=== PATIENT | male | born 1970 | race Caucasian/White ===

== ENCOUNTER → 2021-12-20 11:26 | Outpatient (CLI) | payer OTHER, SELFPAY | PROVIDERS: Visit Provider Family Medicine | DX: H91.22 Sudden idiopathic hearing loss, left ear (principal); H93.12 Tinnitus, left ear | CPT/HCPCS: 99204; 99212 ==

== ENCOUNTER → 2021-12-25 14:21 | Outpatient (CLI) | payer OTHER, SELFPAY | PROVIDERS: Visit Provider Family Medicine | DX: H91.22 Sudden idiopathic hearing loss, left ear (principal) | CPT/HCPCS: 99183; G0277 ==

== ENCOUNTER 2022-01-21 03:53 | Emergency (ER) | payer OTHER, SELFPAY ==
[2022-01-21] VITALS (15 sets, daily range): BP systolic 115–164; BP diastolic 58–86; PULSE 58–89; RESP 10–20; TEMP 36.3; O2SAT 94–98; BMI 32.5
--- NOTE | 2022-01-21 04:10 | DI.CT.S_ITS ---
PROCEDURE: CT HEAD/BRAIN WO CON INDICATIONS: severe headache, recent surgery for acoustic schwannoma TECHNIQUE: Noncontrast 4.5 mm thick angled axial sections acquired from the foramen magnum to the vertex, with coronal and sagittal reformats. For radiation dose reduction, the following was used: automated exposure control, adjustment of mA and/or kV according to patient size. COMPARISON: None. FINDINGS: Image quality: Excellent. CSF spaces: Basal cisterns are patent. No extra-axial fluid collections. Ventricles are normal in size and shape. Brain: No midline shift. No intracranial masses or hemorrhage. Ferro-white matter interface is normal. Skull and face: Calvarium and visualized facial bones are intact, without suspicious lesions. Sinuses: Visualized sinuses are clear. 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 IMPRESSION: No acute intracranial disease process. Dictated by: Eva Rowe MD, PhD on 01/21/2022 at 7:32 Approved by: Eva Rowe MD, PhD on 01/21/2022 at 7:34
--- NOTE | 2022-01-21 04:12 | ED_ITS ---
HPI - Headache <Jameson Moura DO - Last Filed: 01/21/22 17:57> General Chief Complaint: Headache Stated Complaint: headache after brain surgery Time Seen by Provider: 01/21/22 04:09 History of Present Illness HPI Narrative: 51-year-old male nonsmoker with history of acoustic schwannoma and recent surgical intervention at [facility], currently postop day 5 presents with his in the chief complaint of a rather sudden onset severe and worsening headache over the course of the day. He states that he sneezed this evening and felt a sudden and severe left-sided headache that initially was in his left frontal region but rather quickly radiated to the left occipital region. He states he has taken all of his routine medications including antiemetics, Tylenol, meloxicam and even oxycodone and morphine with little to no relief. He denies any trauma or injury. He has had no fever or chills. He denies blurred vision, trouble speech or extremity numbness, tingling or weakness. He states he has had complete left-sided hearing loss since prior to the surgery and there is no change there and he has been slightly dizzy for some time as well, no change the re. He is nauseated but denies any vomiting. He has no chest pain or shortness of breath. He denies any obvious provocation or palliation of his symptoms. Related Data Allergies Allergy/AdvReac Type Severity Reaction Status Date / Time Benzodiazepines AdvReac Verified 01/21/22 04:17 Nbnxfco-DIK-PlW Reductase AdvReac Verified 01/21/22 04:17 Inhibitor Review of Systems <Jameson Moura DO - Last Filed: 01/21/22 17:57> Review of Systems Narrative: GENERAL: Denies chills, fatigue, malaise, fever, sweats. HEENT: Denies sinus pain, ear pain, sore throat, difficulty swallowing, dizziness. RESPIRATORY: Denies dyspnea, cough, wheezing, hemoptysis, sputum. CARDIOVASCULAR: Denies chest pain, palpitations, orthopnea, edema, GASTROINTESTINAL: Denies nausea, vomiting, abdominal pain, diarrhea, constipat ion, melena. : Denies dysuria, frequency, incontinence, hematuria, urinary retention. MUSCULOSKELETAL: denies weakness, joint pain, or bony pain SKIN: Denies rash, skin lesions, or other NEUROLOGIC: See HPI PSYCHIATRIC: No concerning psychosocial issues. 12 point review of systems is negative except for those stated above Patient History <Jameson Moura DO - Last Filed: 01/21/22 17:57> Social History Smoking Status: Never smoker Exam <Jameson Moura DO - Last Filed: 01/21/22 17:57> Narrative Exam Narrative: GENERAL: [51] year old patient appears stated age. Well-developed patient, in mild distress. GCS 15, ambulating with steady gait HEAD: Atraumatic. Normocephalic. Left posterior auricular incision is clean, dry and intact without any dehiscence, drainage, erythema EYES: Pupils equal round and reactive. Extraocular motions intact. No scleral icterus. No injection or drainage. ENT: Nose without bleeding, purulent drainage. Throat without erythema, tonsillar hypertrophy or exudate. Airway patent. NECK: Trachea midline. Non tender CARDIOVASCULAR: Regular rate and rhythm without murmurs, gallops, or rubs. RESPIRATORY: Clear to auscultation. Breath sounds equal bilaterally. No wheezes, rales, or rhonchi. GASTROINTESTINAL: Abdomen soft, non-tender, nondistended. EXTREMITIES: No edema or joint tenderness. BACK: Nontender without deformity or crepitance. No flank tenderness. NEURO: AOx3. Cranial nerves 2-12 grossly intact SKIN: No rash or erythema of visible areas Initial Vital Signs Initial Vital Signs: Vital Signs Temperature 97.3 F L 01/21/22 03:56 Pulse Rate 69 01/21/22 03:56 Respiratory Rate 13 01/21/22 03:56 Blood Pressure 164/86 H 01/21/22 03:56 Pulse Oximetry 98 01/21/22 03:56 <Leah Mckeon DO - Last Filed: 01/21/22 18:31> Initial Vital Signs Initial Vital Signs: Vital Signs Temperature 97.3 F L 01/21/22 03:56 Pulse Rate 69 01/21/22 03:56 Respiratory Rate 13 01/21/22 03:56 Blood Pressure 164/86 H 01/21/22 03:56 Pulse Oximetry 98 01/21/22 03:56 Course <DO Ananya Chopra Last Filed: 01/21/22 17:57> Orders Ordered: ED Orders 01/21/22 10:30 CT head/brain wo con Stat Discontinued Medications Dexamethasone (Dexamethasone 4 Mg/Ml Vial) 2 mg IV NOW ONE Stop: 01/21/22 10:56 Last Admin: 01/21/22 11:12 Dose: 2 mg Documented by: LUIS M Sodium Chloride (Normal Saline 0.9%) 1,000 mls @ 125 mls/hr IV CONT TRAE Last Infusion: 01/21/22 10:16 Dose: 0 mls/hr Documented by: Infusion: 01/21/22 10:13 Dose: 0 mls/hr Documented by: Admin: 01/21/22 04:53 Dose: 125 mls/hr Documented by: MIRANDA Sodium Chloride (Normal Saline 0.9%) 1,000 mls @ 1,000 mls/hr IV BOLUS ONE Stop: 01/21/22 12:09 Last Infusion: 01/21/22 12:15 Dose: 0 mls/hr Documented by: LUIS M Admin: 01/21/22 11:12 Dose: 1,000 mls/hr Documented by: LUIS M Consultations Consultation #1: [id number] - discussed with electroneurodiagnostic technologist ENT at [facility] ([facility]) who was involved with patient's surgery and we have discussed elements of history and physical as well as labs and imaging. We sure the opinion that meningitis is unlikely, and are reassured by initial head CT. We discussed the possibility of other imaging modalities and in the and he recommends repeating the head CT at the 6 hour gayle. In the interim he will discuss with his partner and notify us if there is any alternative plan recommended. Vital Signs Vital signs: Vital Signs - 8 hr 01/21/22 10:46 01/21/22 11:00 01/21/22 11:30 Pulse Rate 63 64 74 Blood Pressure 115/58 L Pulse Oximetry 96 95 95 01/21/22 12:00 01/21/22 12:11 Pulse Rate 77 66 Blood Pressure 130/64 Pulse Oximetry 96 97 <Leah Mckeon DO - Last Filed: 01/21/22 18:31> Orders Ordered: ED Orders 01/21/22 10:30 CT head/brain wo con Stat Discontinued Medications Dexamethasone (Dexamethasone 4 Mg/Ml Vial) 2 mg IV NOW ONE Stop: 01/21/22 10:56 Last Admin: 01/21/22 11:12 Dose: 2 mg Documented by: LUIS M Sodium Chloride (Normal Saline 0.9%) 1,000 mls @ 125 mls/hr IV CONT TRAE Last Infusion: 01/21/22 10:16 Dose: 0 mls/hr Documented by: Infusion: 01/21/22 10:13 Dose: 0 mls/hr Documented by: Admin: 01/21/22 04:53 Dose: 125 mls/hr Documented by: MIRANDA Sodium Chloride (Normal Saline 0.9%) 1,000 mls @ 1,000 mls/hr IV BOLUS ONE Stop: 01/21/22 12:09 Last Infusion: 01/21/22 12:15 Dose: 0 mls/hr Documented by: LUIS M Admin: 01/21/22 11:12 Dose: 1,000 mls/hr Documented by: LUIS M Reevaluation(s) Reevaluation #1: Patient was sleeping. Head CT is negative. Current plan is for repeat head CT at 10:30 a.m. and with results follow-up with neuro surgery for additional plan. Time: 09:09 Consultations Consultation #2: Spoke with Dr. Kehinde Cotto. Time: 11:55 Vital Signs Vital signs: Vital Signs - 8 hr 01/21/22 10:46 01/21/22 11:00 01/21/22 11:30 Pulse Rate 63 64 74 Blood Pressure 115/58 L Pulse Oximetry 96 95 95 01/21/22 12:00 01/21/22 12:11 Pulse Rate 77 66 Blood Pressure 130/64 Pulse Oximetry 96 97 MDM - Headache <Jameson Moura DO - Last Filed: 01/21/22 17:57> Lab Data Result diagrams: 01/21/22 04:30 01/21/22 04:30 Labs: Lab Results 01/21/22 01/21/22 01/21/22 Range/Units 04:30 04:30 04:30 WBC 6.7 (4.5-11.0) X10^3/uL RBC 4.88 (4.5-5.9) X10^6/uL Hgb 15.7 (13.5-17.5) g/dL Hct 43.9 (41-53) % MCV 89.9 (80-100) fL MCH 32.1 (26-34) PG MCHC 35.7 (30-36) % RDW 13.1 (11.6-14.8) % Plt Count 198 (150-400) X10^3/uL Neut % (Auto) 65.4 (50-75) % Lymph % (Auto) 24.4 L (25-40) % [place] % (Auto) 8.8 (3-14) % Eos % (Auto) 0.9 L (2-4) % Baso % (Auto) 0.5 (0-2) % Neut # (Auto) 4400 (5282-7528) /uL Lymph # (Auto) 1600 (5033-4957) /uL [place] # (Auto) 600 (0-900) /uL Eos # (Auto) 100 (0-450) /uL Baso # (Auto) 0 (0-100) /uL Sodium 135 L (137-145) mmol/L Potassium 4.1 (3.4-5.1) mmol/L Chloride 99 (98-107) mmol/L Carbon Dioxide 29 (22-32) mmol/L BUN 23 H (9-20) mg/dL Creatinine 1.10 (0.66-1.25) mg/dL Estimated GFR > 60 (>60) mL/min BUN/Creatinine Ratio 20.9 (6-22) Glucose 99 (70-100) mg/dL Calcium 8.7 (8.4-10.2) mg/dL Magnesium 2.0 (1.6-2.3) mg/dL Total Bilirubin 0.4 (0.2-1.3) mg/dL AST 19 (17-59) IU/L ALT 16 (<50) IU/L Alkaline Phosphatase 46 (38-126) U/L Total Protein 6.6 (6.3-8.2) g/dL Albumin 4.1 (3.5-5.0) g/dL Globulin 2.5 (1.7-4.1) g/dL Albumin/Globulin Ratio 1.6 (1.0-2.8) SARS-CoV-2 (PCR) (Negative) 01/21/22 Range/Units 04:55 WBC (4.5-11.0) X10^3/uL RBC (4.5-5.9) X10^6/uL Hgb (13.5-17.5) g/dL Hct (41-53) % MCV (80-100) fL MCH (26-34) PG MCHC (30-36) % RDW (11.6-14.8) % Plt Count (150-400) X10^3/uL Neut % (Auto) (50-75) % Lymph % (Auto) (25-40) % [place] % (Auto) (3-14) % Eos % (Auto) (2-4) % Baso % (Auto) (0-2) % Neut # (Auto) (8971-7538) /uL Lymph # (Auto) (5276-0824) /uL [place] # (Auto) (0-900) /uL Eos # (Auto) (0-450) /uL Baso # (Auto) (0-100) /uL Sodium (137-145) mmol/L Potassium (3.4-5.1) mmol/L Chloride (98-107) mmol/L Carbon Dioxide (22-32) mmol/L BUN (9-20) mg/dL Creatinine (0.66-1.25) mg/dL Estimated GFR (>60) mL/min BUN/Creatinine Ratio (6-22) Glucose (70-100) mg/dL Calcium (8.4-10.2) mg/dL Magnesium (1.6-2.3) mg/dL Total Bilirubin (0.2-1.3) mg/dL AST (17-59) IU/L ALT (<50) IU/L Alkaline Phosphatase (38-126) U/L Total Protein (6.3-8.2) g/dL Albumin (3.5-5.0) g/dL Globulin (1.7-4.1) g/dL Albumin/Globulin Ratio (1.0-2.8) SARS-CoV-2 (PCR) Negative (Negative) Imaging Data CT scan - head: Radiologist's Impression: [address] [address] [address] Scan Report Signed Patient: Meño Kelly MR#: [id number] : 1970 Acct:[id number] Age/Sex: 51 / M Date of Service: 01/21/22 Loc: ED Accession Number: [id number] ?? Procedure: CT head/brain wo con Ordering Provider: Jameson Moura D.O. PROCEDURE:? CT HEAD/BRAIN WO CON ? INDICATIONS:? severe headache, recent surgery for acoustic schwannoma ? TECHNIQUE:? Noncontrast 4.5 mm thick angled axial sections acquired from the foramen magnum to the vertex, with coronal and sagittal reformats.? For radiation dose reduction, the following was used:? automated exposure control, adjustment of mA and/or kV according to patient size.? ? COMPARISON:? None. ? FINDINGS:? Image quality:? Excellent.? ? CSF spaces:? Basal cisterns are patent.? No extra-axial fluid collections.? Ventricles are normal in size and shape.? ? Brain:? No midline shift.? No intracranial masses or hemorrhage.? Ferro-white matter interface is normal.? ? Skull and face:? Calvarium and visualized facial bones are intact, without suspicious lesions.? ? Sinuses:? Visualized sinuses are clear.? 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 ? IMPRESSION:? No acute intracranial disease process. ? ? Dictated by: Eva Rowe MD, PhD on 01/21/2022 at 7:32 ? ? Approved by: Eva Rowe MD, PhD on 01/21/2022 at 7:34? <Leah Mckeon, DO - Last Filed: 01/21/22 18:31> Lab Data Labs: Lab Results 01/21/22 01/21/22 01/21/22 Range/Units 04:30 04:30 04:30 WBC 6.7 (4.5-11.0) X10^3/uL RBC 4.88 (4.5-5.9) X10^6/uL Hgb 15.7 (13.5-17.5) g/dL Hct 43.9 (41-53) % MCV 89.9 (80-100) fL MCH 32.1 (26-34) PG MCHC 35.7 (30-36) % RDW 13.1 (11.6-14.8) % Plt Count 198 (150-400) X10^3/uL Neut % (Auto) 65.4 (50-75) % Lymph % (Auto) 24.4 L (25-40) % [place] % (Auto) 8.8 (3-14) % Eos % (Auto) 0.9 L (2-4) % Baso % (Auto) 0.5 (0-2) % Neut # (Auto) 4400 (3447-7905) /uL Lymph # (Auto) 1600 (6755-0858) /uL [place] # (Auto) 600 (0-900) /uL Eos # (Auto) 100 (0-450) /uL Baso # (Auto) 0 (0-100) /uL Sodium 135 L (137-145) mmol/L Potassium 4.1 (3.4-5.1) mmol/L Chloride 99 (98-107) mmol/L Carbon Dioxide 29 (22-32) mmol/L BUN 23 H (9-20) mg/dL Creatinine 1.10 (0.66-1.25) mg/dL Estimated GFR > 60 (>60) mL/min BUN/Creatinine Ratio 20.9 (6-22) Glucose 99 (70-100) mg/dL Calcium 8.7 (8.4-10.2) mg/dL Magnesium 2.0 (1.6-2.3) mg/dL Total Bilirubin 0.4 (0.2-1.3) mg/dL AST 19 (17-59) IU/L ALT 16 (<50) IU/L Alkaline Phosphatase 46 (38-126) U/L Total Protein 6.6 (6.3-8.2) g/dL Albumin 4.1 (3.5-5.0) g/dL Globulin 2.5 (1.7-4.1) g/dL Albumin/Globulin Ratio 1.6 (1.0-2.8) SARS-CoV-2 (PCR) (Negative) 01/21/22 Range/Units 04:55 WBC (4.5-11.0) X10^3/uL RBC (4.5-5.9) X10^6/uL Hgb (13.5-17.5) g/dL Hct (41-53) % MCV (80-100) fL MCH (26-34) PG MCHC (30-36) % RDW (11.6-14.8) % Plt Count (150-400) X10^3/uL Neut % (Auto) (50-75) % Lymph % (Auto) (25-40) % [place] % (Auto) (3-14) % Eos % (Auto) (2-4) % Baso % (Auto) (0-2) % Neut # (Auto) (2434-6031) /uL Lymph # (Auto) (8381-3849) /uL [place] # (Auto) (0-900) /uL Eos # (Auto) (0-450) /uL Baso # (Auto) (0-100) /uL Sodium (137-145) mmol/L Potassium (3.4-5.1) mmol/L Chloride (98-107) mmol/L Carbon Dioxide (22-32) mmol/L BUN (9-20) mg/dL Creatinine (0.66-1.25) mg/dL Estimated GFR (>60) mL/min BUN/Creatinine Ratio (6-22) Glucose (70-100) mg/dL Calcium (8.4-10.2) mg/dL Magnesium (1.6-2.3) mg/dL Total Bilirubin (0.2-1.3) mg/dL AST (17-59) IU/L ALT (<50) IU/L Alkaline Phosphatase (38-126) U/L Total Protein (6.3-8.2) g/dL Albumin (3.5-5.0) g/dL Globulin (1.7-4.1) g/dL Albumin/Globulin Ratio (1.0-2.8) SARS-CoV-2 (PCR) Negative (Negative) MDM Narrative Medical decision making narrative: This is a 51-year-old male with recent left translabyrinthine craniotomy who has had headache which has been slowly worsening followed by sneeze which worsened again. He had head CT which was negative, does not show any acute infectious changes and was seen by Dr. Moura initially and then followed by myself. CT was repeated at the 6 hour gayle with no acute findings. Patient does not appear to be infectious or have any signs of meningitis today, his imaging was reviewed with Dr. Busby for the ENT service. And patient also spoke with the primary surgeon Dr. Rock who stated that his steroid wean may have been too fast. Patient notes that this steroids were causing a lot of agitation and discomfort and so he weaned him down as quickly as possible. At this time patient appropriate to return home he states narcotics are not very helpful, he did find IV fluids here helpful, he does have narcotics them at home if needed. Dr. Busby is going to consult with Dr. Rock and patient encouraged to reach out to see if they would like him to adjust his dexamethasone or continue his taper. Return precautions were discussed and patient feels comfortable with this plan. Discharge Plan Departure Patient Disposition: Home Clinical Impression: Headache, S/P brain surgery Activity Restrictions/Additional Instructions: Follow up with your surgeon. Follow their recommendations in terms of your steroids. I spoke with Dr. Busby who will also speak with Dr. Negron regarding your dexamethasone. Feel free to call today and a couple hours if you have not heard back about recommendations in terms of her steroids they may not adjust them. Please return for rapidly worsening symptoms, new vision changes, numbness, tingling weakness, difficulty with ambulation or gait, facial swelling, redness, fevers, passing out or other new or concerning symptoms. Visit Report Forms: Patient Portal/API
[2022-01-21 04:44] LABS: Add Manual Diff / Slide Review NO; Basophils Absolute Auto 0 /uL (0-100); Basophils Percent Auto 0.5 % (0-2); Eosinophils Absolute Auto 100 /uL (0-450); Eosinophils Percent Auto 0.9 % (2-4); Hematocrit 43.9 % (41-53); Hemoglobin 15.7 g/dL (13.5-17.5); Lymphocytes Absolute Auto 1600 /uL (1100-4500); Lymphocytes Percent Auto 24.4 % (25-40); Mean Corpuscular HGB Conc 35.7 % (30-36); Mean Corpuscular Hemoglobin 32.1 PG (26-34); Mean Corpuscular Volume 89.9 fL (80-100); Monocytes Absolute Auto 600 /uL (0-900); Monocytes Percent Auto 8.8 % (3-14); Neutrophils Absolute Auto 4400 /uL (1500-7000); Neutrophils Percent Auto 65.4 % (50-75); Platelet Count 198 X10^3/uL (150-400); Red Blood Cell Count 4.88 X10^6/uL (4.5-5.9); Red Cell Distribution Width 13.1 % (11.6-14.8); White Blood Cell Count 6.7 X10^3/uL (4.5-11.0)
[2022-01-21 04:53] LABS: Alanine Aminotransferase 16 IU/L (<50); Albumin 4.1 g/dL (3.5-5.0); Albumin Globulin Ratio 1.6 (1.0-2.8); Alkaline Phosphatase 46 U/L (38-126); Aspartate Aminotransferase 19 IU/L (17-59); BUN Creatinine Ratio 20.9 (6-22); Bilirubin Total 0.4 mg/dL (0.2-1.3); Blood Urea Nitrogen 23 mg/dL (9-20); Calcium 8.7 mg/dL (8.4-10.2); Carbon Dioxide 29 mmol/L (22-32); Chloride 99 mmol/L (98-107); Estimated Glomerular Filt Rate > 60 mL/min (>60); Globulin 2.5 g/dL (1.7-4.1); Glucose 99 mg/dL (70-100); HEMOLYSIS < 15 (0-50); Potassium 4.1 mmol/L (3.4-5.1); Sodium 135 mmol/L (137-145); Total Protein 6.6 g/dL (6.3-8.2)
[2022-01-21] MEDS: SODIUM CHLORIDE 0.9% 1,000 ML 125 ML IV (04:53)
[2022-01-21 05:22] LABS: COVID19 -Nasal RAPID Negative (Negative)
--- NOTE | 2022-01-21 10:30 | DI.CT.S_ITS ---
PROCEDURE: CT HEAD/BRAIN WO CON INDICATIONS: 51-year-old male with severe headache status post surgery for acoustic schwannoma, repeat study TECHNIQUE: Noncontrast 5 mm thick angled axial sections acquired from the foramen magnum to the vertex, with coronal and sagittal reformats. For radiation dose reduction, the following was used: automated exposure control, adjustment of mA and/or kV according to patient size. COMPARISON: [facility], CT, CT HEAD/BRAIN WO CON, 01/21/2022, 4:12. FINDINGS: Cerebrum, Cerebellum and Brainstem: No evidence of intracranial hemorrhage, mass effect or extra-axial fluid collections. There is appropriate cerebral and cerebellar volume. White matter attenuation is homogeneous. Ferro-white distinction is well preserved throughout the exam. Basal cisterns and foramen magnum are clear. Ventricles: Appropriate size and position. No evidence of hydrocephalus. Skull Base: There has been a left translabyrinthine craniotomy with fat packing of the mastoid defect. Fluid in the epitympanicum noted. Deep mastoid cortex maintained. No evidence of complication. Otherwise, the bony sella, pituitary gland and infundibulum are unremarkable. Clivus and craniovertebral relationships are appropriate. Calvarium and Scalp: No scalp soft tissue swelling. The underlying calvarium is intact without skull fracture or lytic lesion. Paranasal Sinuses: Small subcentimeter right mastoid retention cyst IMPRESSION: Unremarkable CT brain without intracranial hemorrhage or mass effect status post left translabyrinthine craniotomy Approved by: Raz Atwood M.D. on 01/21/2022 at 10:18
--- NOTE | 2022-01-21 10:37 | PC.NURSE ---
IV fluids stopped and 250mL total was infused. Provider ok'd. Unable to adjust volume infused/wasted in OCT.
[2022-01-21] MEDS: SODIUM CHLORIDE 0.9% 1,000 ML 1000 ML IV (11:12)
[2022-01-21] MEDS: DEXAMETHASONE 4 MG/ML VIAL 2 MG IV (11:12)
== END 2022-01-21 12:38 | disposition home or self-care (01) ==
PROVIDERS: Emergency Medicine; Emergency Provider Emergency Medicine
DX: Z98.890 Other specified postprocedural states (principal); R51.9 Headache, unspecified; Z20.822 Contact with and (suspected) exposure to COVID-19; Z86.011 Personal history of benign neoplasm of the brain
CPT/HCPCS: 36415; 70450; 80053; 83735; 85025; 87635; 96361; 96374; 99284; C9803; J1100